=== PATIENT | male | born 1975 | race Caucasian/White ===

== ENCOUNTER → 2017-07-16 | Outpatient (CLI) | payer BC ==
--- NOTE | 2017-07-16 14:20 | RAD ---
Right upper extremity musculoskeletal ultrasound without comparison for injury and pain. Specifically, the patient was lifting a fish and felt a pop in the shoulder with burning in the right biceps region on July 06, 2017. This resulted in swelling of the upper arm which migrated to swelling of the forearm. TECHNIQUE AND FINDINGS: Real-time grayscale and color Doppler evaluation of the arm and forearm is performed. Mid anterior arm, there is a complex heterogeneous fluid collection measuring 5.3 x 3.8 x 2.9 cm, which undermines and elevates the bicep muscle. The biceps tendon is swollen and echogenic within the bicipital groove of the humerus. Muscle fibers of the proximal biceps muscle are aggravated and retracted towards the distal insertion site. These findings are most suggestive of a complete tear of the proximal biceps tendon with muscle retraction and large hematoma formation. This finding could be better evaluated with MRI. Interrogation of the soft tissues of the forearm reveals no sonographically discernible abnormality. IMPRESSION: 1. Findings suggest complete tear of the proximal biceps tendon, with retraction of the biceps muscle distally, and swelling and increased echogenicity of the proximal biceps tendon within the bicipital groove. A 5.3 cm complex fluid collection undermines and elevates the retracted muscle fibers, and is consistent with a hematoma. Further imaging with MRI is recommended. Electronically signed by: Enrique Segundo MD (07/16/2017 2:16 PM) [id number]
--- NOTE | 2017-07-16 16:34 | RAD ---
SHOULDER 2+V RIGHT History: [place] a pop in the shoulder, burning and biceps, July 06.. Comparison: None are available Mild degenerative spurring at the undersurface of the acromioclavicular joint. Mild sclerotic and cystic changes at the greater tuberosity suggesting rotator cuff arthropathy. No acute fracture or dislocation. No bone destruction. Soft tissues appear unremarkable. IMPRESSION: No acute radiographic findings. Electronically signed by: Kai Ponce MD (07/16/2017 4:30 PM) [facility]
== END | disposition home or self-care (01) ==
LOC: US 09:49
PROVIDERS: ATTEND Family Medicine
DX: M25.511 Pain in right shoulder (principal)
CPT/HCPCS: 73030; 76881